=== PATIENT | male | born 1975 | race Caucasian/White ===

== ENCOUNTER 2020-11-14 05:54 | Emergency (ER) | payer OTHER ==
[~2020-11-14] VITALS: Ht 165.1 cm; Wt 88.5 kg
[~2020-11-14 05:54] MED LIST: ALKA-SELTZER P1 EA14 PO; ALPRAZOLAM1 MG PO; ATIVAN1 MG PO; CARAFATE 11 GM/10 M1 PO; ERYTHROMYCIN E3.5 G3 OPHTHALMIC; ESCITALOPRAM OX20 MG PO; FLECAINIDE ACE100 MG PO; FLECAINIDE ACET50 M1; FLECAINIDE ACET50 M1 PO; LOPRESSOR25 PO; LOPRESSOR50 PO; METOPROLOL SUCC50 MG; NASONEX17 GM NS; NEXIUM20 MG PO; NORCO 5-325 TA1 EACH PO; OMEPRAZOLE; PRILOSEC OTC20 MG; REQUIP 1 MG TABL1 M1 PO; SERTRALINE HCL50 MG; SERTRALINE HCL50 MG PO; TOPROL XL50 MG; TYLENOL COLD AND FLU; XANAX1 MG PO; ZOFRAN ODT4 MG PO; ZYRTEC10 MG PO
[2020-11-14 06:49] LABS: HEMATOCRIT 49.6 % (42.0-52.0); MCH 31.7 pg (26.0-34.0); MCHC 34.2 g/dL (28.0-37.0); MCV 92.8 fL (80.0-100.0); RBC 5.35 mil/uL (4.50-6.00); RDW 13.2 % (10.5-14.5); WBC 11.6 thou/uL (4.0-11.0)
[2020-11-14 06:51] LABS: CALCIUM 9.8 mg/dL (8.5-10.1); CREATININE 1.2 mg/dL (0.7-1.3)
[2020-11-14 06:56] LABS: ALBUMIN 4.2 g/dL (3.4-5.0); TOTAL BILIRUBIN 1.3 mg/dL (0.2-1.0)
--- NOTE | 2020-11-14 07:24 | EKG ---
[place] [id number] [facility] [place] [employer] [address] ELECTROCARDIOGRAM REPORT Name: DAVIDALYSA ROMERO Room #: PRE [facility]#: [id number] Admission: Attend Phys: Discharge: Date of : 79 Report #: [id number] [facility] ED Test Date: 2020-11-14 Test Time: 06:47:14 Pat Name: ALYSA HERNANDEZ Department: Room: Gender: M [employer] Presentation Associate: herminia johnson : 1975 Requested By: Leonie Camp Order Number: [id number] MD: Dominik Garland Measurements Intervals [place] Rate: 81 P: 3 PA: 176 QRS: -27 QRSD: 94 T: 7 QT: 384 QTc: 446 Interpretive Statements Sinus rhythm Borderline left axis deviation Compared to ECG 12/25/2019 11:00:52 Sinus tachycardia no longer present Myocardial infarct finding no longer present Electronically Signed On 11-14-2020 7:23:52 CDT by Dominik Garland [email or web address] <ELECTRONICALLY SIGNED> By: Dominik Garland MD, [facility] 11/14/20 0723 [id number] Dominik Garland MD, FACElisa /EPI
[2020-11-14 08:17] VITALS: BP 139/94
[2020-11-14 08:41] LABS: AMP/METHAMP Negative (Negative); BARBITURATES Negative (Negative); BENZODIAZEPINES POSITIVE (Negative); COCAINE Negative (Negative); METHADONE Negative (Negative); OPIATES POSITIVE (Negative); PCP Negative (Negative)
[2020-11-14 10:11] LABS: URINE BLOOD 2+ (Negative); URINE CLARITY CLEAR; URINE COLOR YELLOW; URINE GLUCOSE-RANDOM* NEGATIVE (Negative); URINE KETONES 2+ (Negative); URINE LEUKOCYTES-REFLEX NEGATIVE (Negative); URINE NITRITE-REFLEX NEGATIVE (Negative); URINE PROTEIN (DIPSTICK) 2+ (Negative); URINE UROBILINOGEN 0.2 E.U./dl (0.2-1.0)
[2020-11-14 10:22] LABS: ICTOTEST (BILI CONFIRMATORY) Negative (Negative); URINE BILIRUBIN NEGATIVE (Negative)
[2020-11-14 10:55] LABS: SQUAMOUS 0-3 Few /LPF (0-3)
[2020-11-14 10:56] LABS: URINE WBC-REFLEX 0-5 Rare /HPF (0-5)
[2020-11-14 10:57] LABS: URINE RBC 1-2 Rare /HPF (NONE SEEN)
[2020-11-14 10:58] LABS: BACTERIA-REFLEX 1-9 Few /HPF (None Seen)
[2020-11-14 10:59] LABS: CRYSTALS None Seen /LPF (None Seen); HYALINE CASTS 0-3 Few /LPF (None Seen); MUCUS 0-3 Light strn/LPF (None Seen)
== END 2020-11-14 09:42 | disposition home or self-care (01) ==
LOC: ER 05:54
PROVIDERS: Student in an Organized Health Care Education/Training Program
DX: K59.00 Constipation, unspecified (principal); Z20.822 Contact with and (suspected) exposure to COVID-19; R10.13 Epigastric pain; K21.9 Gastro-esophageal reflux disease without esophagitis; I10 Essential (primary) hypertension; Z90.5 Acquired absence of kidney; Z79.899 Other long term (current) drug therapy